=== PATIENT | male | born 1965 | race Caucasian/White ===

== ENCOUNTER 2016-11-14 16:15 | Inpatient (IN) | payer BC ==
[~2016-11-14] VITALS: Ht 180.3 cm; Wt 86.8 kg
[2016-11-14] MEDS ORDERED: MoRPHine SULFATE 10 MG/ML CARP/VIAL IV STA (16:49)
[2016-11-14] MEDS ORDERED: HYDR200T5 PO (16:49)
[2016-11-14] MEDS ORDERED: SODIUM CHLORIDE 0.9% 1000ML 2,000 ML IV STA (16:49)
[2016-11-14] MEDS ORDERED: ONDANSETRON INJ 2 MG/ML 2 ML VIAL IV STA (16:49)
[2016-11-14] MEDS ORDERED: OPTIRAY 320 IV PRN (17:00)
[2016-11-14 17:32] LABS: ISTAT CREATININE 0.9 mg/dl (0.6-1.3); ISTAT HEMOGLOBIN 15.6 g/dl (14.0-18.0); ISTAT IONIZED CALCIUM 1.15 mmol/l (1.12-1.32)
[2016-11-14 17:56] LABS: BASO % 0.2 %; BASO ABS # 0.02 K/uL (0-0.2); COMPLETE YES; EOS % 0.2 %; HEMATOCRIT 43.9 % (42-52); IG% 0.2 %; LYMPH % 6.2 %; LYMPH ABS # 0.81 K/uL (1.2-3.4); MEAN CELL VOLUME 94.4 fL (80-100); MEAN CORPUSCULAR HEMOGLOBIN 32.7 pg (25-34); MEAN CORPUSCULAR HGB CONC 34.6 g/dl (32-36); MEAN PLATELET VOLUME 10.2 fL (7.4-10.4); MONO % 4.5 %; NEUT % 88.7 %; PLATELET COUNT 187 K/uL (130-400); RED BLOOD COUNT 4.65 M/uL (4.7-6.1); WHITE BLOOD COUNT 12.99 K/uL (4.8-10.8)
--- NOTE | 2016-11-14 18:01 | DIAGNOSTIC IMAGING REPORT ---
CT ABD/PELVIS IV CONTRAST ONLY CLINICAL HISTORY: severe epigastric abd pain COMPARISON STUDY: None. TECHNIQUE: Following the IV administration of 87 mL of Optiray-320, CT scan of the abdomen and pelvis was performed from the lung bases to the proximal femurs. Images are reviewed in the axial, sagittal, and coronal planes. IV contrast was administered without complication. CT DOSE: 324.75 mGy.cm FINDINGS: Lower chest: There is bibasal atelectasis. Liver: There is too small to characterize 8 mm hypodensity within the right hepatic lobe. Gallbladder: Unremarkable. Spleen: Normal in size and attenuation. Pancreas: Unremarkable. Adrenal glands: Unremarkable. Kidneys: There are small nonobstructing right renal calculi. No renal masses are visualized. There is no hydronephrosis. Bowel: There are dilated fluid-filled proximal small bowel loops with mild mesenteric edema. The distal small bowel is of normal caliber. The findings are indicative of a small bowel obstruction. There is colonic diverticulosis. There are no acute peridiverticular inflammatory changes. Peritoneum: There is no intraperitoneal free air or abdominal ascites. Vasculature: The abdominal aorta is normal in course and caliber. Adenopathy: None. Pelvic viscera: The bladder, and pelvic viscera are unremarkable. Skeletal structures: No destructive osseous lesions are seen. IMPRESSION: 1. Proximal to mid small bowel obstruction with mesenteric edema. No mass is visualized. A closed loop obstruction cannot be excluded. There is no pneumatosis, and no evidence for portal venous gas. Surgical consultation is recommended. 2. Right-sided nephrolithiasis 3. No evidence of free air 4. Diverticulosis. No evidence of acute peridiverticular inflammatory change. Electronically signed by: Cory Ortega M.D. 11/14/2016 6:00 PM Dictated Date/Time: 11/14/2016 5:53 PM
[2016-11-14 18:04] LABS: BUN/CREATININE RATIO 21.4 (10-20); CALCIUM 8.9 mg/dl (8.5-10.1); CREATININE 1.1 mg/dl (0.60-1.40); POTASSIUM 3.7 mmol/L (3.5-5.1)
[2016-11-14] MEDS ORDERED: D5W AND 1/2NSS + 20MEQ KCL 1,000 ML IV SCH (19:48)
--- NOTE | 2016-11-14 19:48 | History and Physical ---
History & Physical Date & Time of Service: Nov 14, 2016 at 19:34 Chief Complaint: Severe Abd Pain,Vomiting Primary Care Physician: Miguel Resendiz D.O. History of Present Illness Source: patient, family pt is a 51 years old male who presents to ER for 3 hours acute abdominal pain, with nausea and vomiting, the pain is located at above umbilical area, 10/10, pt denies fever, no diarrhea, this is first time pt has acute abdominal pain. no past surgery history on abdomen. Family History No pertinent family history Social History Smoking Status: Never Smoker Smokeless Tobacco Use: No Alcohol Use: occasionally Drug Use: none Marital Status: Allergies Coded Allergies: No Known Allergies (Unverified , 11/14/16) Home Medications Scheduled Hydroxychloroquine Sulfate (Plaquenil), 400 MG PO QPM Review of Systems Constitutional: No chills, No fatigue, No fever, No problem reported, No sweats , No weakness, No weight loss Eyes: No diplopia, No discharge, No eye pain, No problem reported, No redness, No worsening of vision ENT: No dental problems, No hearing loss, No nasal symptoms, No problem reported, No sore throat, No tinnitus, No trouble swallowing, No unusual epistaxis Respiratory: No cough, No dyspnea at rest, No dyspnea on exertion, No hemoptysis, No problem reported, No shortness of breath, No sputum, No wheezing Cardiovascular: No PND, No chest pain, No claudication, No edema, No orthopnea , No palpitations, No problem reported Abdomen: + nausea, + pain, + vomiting Musculoskeletal: No calf pain, No joint pain, No muscle pain, No problem reported, No swelling Genitourinary - Male: No dysuria, No hematuria, No impotence, No lesions, No penile discharge, No problem reported, No urinary frequency, No urinary hesitancy, No urinary incontinence, No urinary retention, No urinary urgency Neurologic: No balance problems, No memory loss, No numbness/tingling, No paralysis, No problem reported, No vertigo, No weakness Endocrine: No excessive thirst, No excessive urination, No fatigue, No problem reported Hematologic / Lymphatic: No abnormal bleeding/bruising, No clotting problems, No night sweats, No problem reported, No swollen lymph nodes Integumentary: No bleeding, No color change, No itch, No new/changing skin lesions, No problem reported, No rash Physical Exam Vital Signs Date Time Temp Pulse Resp B/P Pulse Ox O2 Delivery O2 Flow Rate FiO2 11/14/16 18:44 76 16 110/76 100 Room Air 11/14/16 16:24 36.3 62 18 126/78 98 Room Air General Appearance: WD/WN, no apparent distress, + mild distress Head: normocephalic, atraumatic Eyes: normal inspection, PERRL ENT: normal ENT inspection Neck: supple, no adenopathy, no JVD Respiratory/Chest: chest non-tender, lungs clear, normal breath sounds Cardiovascular: regular rate, rhythm, no edema, no gallop, no JVD Abdomen/GI: no organomegaly, + tenderness, + guarding Back: normal inspection Extremities/Musculoskelatal: normal inspection, no calf tenderness, normal capillary refill 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, no motor/sensory deficits Skin: normal color, warm/dry Diagnostics Laboratory Results Results Past 24 Hours Test 11/14/16 17:05 11/14/16 17:14 11/14/16 17:20 Range/Units White Blood Count 12.99 4.8-10.8 K/uL Red Blood Count 4.65 4.7-6.1 M/uL Hemoglobin 15.2 14.0-18.0 g/dL Hematocrit 43.9 42-52 % Mean Corpuscular Volume 94.4 80-100 fL Mean Corpuscular Hemoglobin 32.7 25-34 pg Mean Corpuscular Hemoglobin Concent 34.6 32-36 g/dl Platelet Count 187 130-400 K/uL Mean Platelet Volume 10.2 7.4-10.4 fL Neutrophils (%) (Auto) 88.7 % Lymphocytes (%) (Auto) 6.2 % Monocytes (%) (Auto) 4.5 % Eosinophils (%) (Auto) 0.2 % Basophils (%) (Auto) 0.2 % Neutrophils # (Auto) 11.52 1.4-6.5 K/uL Lymphocytes # (Auto) 0.81 1.2-3.4 K/uL Monocytes # (Auto) 0.58 0.11-0.59 K/uL Eosinophils # (Auto) 0.03 0-0.5 K/uL Basophils # (Auto) 0.02 0-0.2 K/uL RDW Standard Deviation 44.3 36.4-46.3 fL RDW Coefficient of Variation 12.8 11.5-14.5 % Immature Granulocyte % (Auto) 0.2 % Immature Granulocyte # (Auto) 0.03 0.00-0.02 K/uL Sodium Level 141 136-145 mmol/L Potassium Level 3.7 3.5-5.1 mmol/L Chloride Level 103 98-107 mmol/L Carbon Dioxide Level 28 21-32 mmol/L Anion Gap 10.0 17.0 16-25 mmol/L Blood Urea Nitrogen 24 7-18 mg/dl Creatinine 1.10 0.60-1.40 mg/dl Est Creatinine Clear Calc Drug Dose 83.6 ml/min Estimated GFR () 89.0 Estimated GFR (Non- 76.8 BUN/Creatinine Ratio 21.4 10-20 Random Glucose 150 70-99 mg/dl Calcium Level 8.9 8.5-10.1 mg/dl Total Bilirubin 0.3 0.2-1 mg/dl Direct Bilirubin 0.1 0-0.2 mg/dl Aspartate Amino Transf (AST/SGOT) 18 15-37 U/L Alanine Aminotransferase (ALT/SGPT) 19 12-78 U/L Alkaline Phosphatase 52 45-117 U/L Total Protein 7.6 6.4-8.2 gm/dl Albumin 4.4 3.4-5.0 gm/dl Lipase 151 73-393 U/L Bedside Hemoglobin 15.6 14.0-18.0 g/dl Bedside Hematocrit 46 42-52 % Bedside Sodium 141 135-144 mEq/L Bedside Potassium 3.5 3.3-5.0 mEq/L Bedside Chloride 101 101-112 mEq/L Bedside Total CO2 27 24-31 mEq/l Bedside Blood Urea Nitrogen 25 7-18 mg/dl Bedside Creatinine 0.9 0.6-1.3 mg/dl Bedside Glucose (other) 151 70-99 mg/dl Bedside Ionized Calcium (Lorri) 1.15 1.12-1.32 mmol/l Bedside Lactic Acid Venous 1.46 0.90-1.70 mmol/L Diagnostic Radiology CT scan-IMPRESSION: 1. Proximal to mid small bowel obstruction with mesenteric edema. No mass is visualized. A closed loop obstruction cannot be excluded. There is no pneumatosis, and no evidence for portal venous gas. Surgical consultation is recommended. 2. Right-sided nephrolithiasis 3. No evidence of free air 4. Diverticulosis. No evidence of acute peridiverticular inflammatory change. Impression Assessment and Plan IMP SBO, possible loop SBO or internal hernia Plan: base on pt has no surgical history, possible loop SBO internal hernia, I recommend to do explortory laparotomy, possible, bowel resection and stoma, D/w benefits, risks and alternatives of the procedure, the risks- infection, bleeding, bowel resection, AL, sepsis, DVT, , pt and his understood, they agree with [facility] plan , i answered all questions, ASA Classification: ASA Class II Level of Care Med/Surg VTE Prophylaxis Risk Level: Low Given or contraindicated: SCD's Note Total Time: Critical Care 30 - 74 minutes
[2016-11-14] MEDS ORDERED: BUPIVACAINE/EPINEPHRINE 0.5% MPF 1:200,000 30 ML VIAL ONE (19:52)
[2016-11-14] MEDS ORDERED: ROPIVACAINE 0.5% 5 MG/ML 30 ML VIAL ONE (19:53)
[2016-11-14] MEDS ORDERED: BUPIVACAINE 0.5 % 5 MG/1 ML PF 10ML VIAL ONE (19:53)
[2016-11-14] MEDS ORDERED: DEXAMETHASONE SOD INJ 4 MG/ML VIAL ONE (19:53)
[2016-11-14] MEDS ORDERED: FENTANYL CITRATE INJ 50 MCG/1 ML 2 ML VIAL ONE (19:53)
[2016-11-14] MEDS ORDERED: PROPOFOL IV EMULSION 10 MG/ML 20 ML VIAL IV ONE (19:56)
[2016-11-14] MEDS ORDERED: LIDOCAINE HCL 2% 2 ML VIAL (20MG/ML) ONE (19:56)
[2016-11-14] MEDS ORDERED: SUCCINYLCHOLINE CHLORIDE 20 MG/ML 10 ML VIAL IV ONE (19:56)
[2016-11-14] MEDS ORDERED: HYDROmorphone INJ 1 MG/ML SYR IV PRN ×3 (20:00→21:30)
[2016-11-14 20:09] LABS: URINE APPEARANCE CLEAR (CLEAR); URINE BILIRUBIN NEG (NEG); URINE COLOR YELLOW; URINE NITRITE NEG (NEG); URINE SPECIFIC GRAVITY > 1.045 (1.000-1.030); UROBILINOGEN NEG (NEG); ZZUR CULT IF INDIC CLEAN CATCH NO
--- NOTE | 2016-11-14 20:14 | EMERGENCY ROOM VISIT NOTE ---
History Report prepared by Yessenia: Diana Kenny Under the Supervision of: Dr. Nicolás Pittman D.O. First contact with patient: 16:37 Chief Complaint: ABDOMINAL PAIN Stated Complaint: SEVERE ABD PAIN,VOMITING History of Present Illness The patient is a 51 year old male who presents to the Emergency Room with complaints of persistent epigastric abdominal pain that began at 1400 today. He currently rates her discomfort as an 8/10 in severity. The patient states that today he ate a salad for lunch and denies it being brown or old. He denies ever having pain like this in the past. The patient denies any previous abdominal surgeries, noting that he still has his appendix and gallbladder. He additionally associates vomiting and nausea with his symptoms today. The patient denies any fever. The patient denies any modifying factors. He denies being able to keep any food or fluids down. The patient denies any sick contacts. He denies any active medical problems. Source of History: patient Onset: 1400 today Position: abdomen (epigastric) Symptom Intensity: 8/10 Timing: other (persistent) Associated Symptoms: + nausea, + vomiting, No fevers Review of Systems See HPI for pertinent positives & negatives. A total of 10 systems reviewed and were otherwise negative. Past Medical & Surgical No pertinent history Family History No pertinent family history Social History Smoking Status: Never Smoker Smokeless Tobacco Use: No Alcohol Use: occasionally Marital Status: Housing Status: lives with significant other Occupation Status: employed Current/Historical Medications Scheduled Hydroxychloroquine Sulfate (Plaquenil), 400 MG PO QPM Allergies Coded Allergies: No Known Allergies (Unverified , 11/14/16) Physical Exam Vital Signs Date Time Temp Pulse Resp B/P Pulse Ox O2 Delivery O2 Flow Rate FiO2 11/14/16 19:45 75 16 112/58 99 Room Air 11/14/16 18:44 76 16 110/76 100 Room Air 11/14/16 16:24 36.3 62 18 126/78 98 Room Air Physical Exam GENERAL: Sitting up in bed, disheveled, holding vomit bag EYE EXAM: normal conjunctiva. OROPHARYNX: no exudate, no erythema, lips, buccal mucosa, and tongue normal and mucous membranes are moist NECK: supple, no nuchal rigidity, no adenopathy, non-tender LUNGS: Clear to auscultation. Normal chest wall mechanics HEART: no murmurs, S1 normal and S2 normal ABDOMEN: Tenderness to palpation in the epigastric region. abdomen sof, normo- active bowel sounds, no masses, no rebound or guarding. BACK: Back is symmetrical on inspection and there is no deformity, no midline tenderness, no CVA tenderness. SKIN: no rashes and no bruising UPPER EXTREMITIES: upper extremities are grossly normal. LOWER EXTREMITIES: No pitting edema. NEURO EXAM: Normal sensorium, cranial nerves II-XII grossly intact, normal speech, no gross weakness of arms, no gross weakness of legs. Medical Decision & Procedures ER Provider Diagnostic Interpretation: Xray results per the radiologist and my interpretation. Other results have been interpreted by the radiologist and reviewed by me. CT ABD/PELVIS IV CONTRAST ONLY CLINICAL HISTORY: severe epigastric abd pain COMPARISON STUDY: None. TECHNIQUE: Following the IV administration of 87 mL of Optiray-320, CT scan of the abdomen and pelvis was performed from the lung bases to the proximal femurs. Images are reviewed in the axial, sagittal, and coronal planes. IV contrast was administered without complication. CT DOSE: 324.75 mGy.cm FINDINGS: Lower chest: There is bibasal atelectasis. Liver: There is too small to characterize 8 mm hypodensity within the right hepatic lobe. Gallbladder: Unremarkable. Spleen: Normal in size and attenuation. Pancreas: Unremarkable. Adrenal glands: Unremarkable. Kidneys: There are small nonobstructing right renal calculi. No renal masses are visualized. There is no hydronephrosis. Bowel: There are dilated fluid-filled proximal small bowel loops with mild mesenteric edema. The distal small bowel is of normal caliber. The findings are indicative of a small bowel obstruction. There is colonic diverticulosis. There are no acute peridiverticular inflammatory changes. Peritoneum: There is no intraperitoneal free air or abdominal ascites. Vasculature: The abdominal aorta is normal in course and caliber. Adenopathy: None. Pelvic viscera: The bladder, and pelvic viscera are unremarkable. Skeletal structures: No destructive osseous lesions are seen. IMPRESSION: 1. Proximal to mid small bowel obstruction with mesenteric edema. No mass is visualized. A closed loop obstruction cannot be excluded. There is no pneumatosis, and no evidence for portal venous gas. Surgical consultation is recommended. 2. Right-sided nephrolithiasis 3. No evidence of free air 4. Diverticulosis. No evidence of acute peridiverticular inflammatory change. Electronically signed by: Cory Ortega M.D. 11/14/2016 6:00 PM Dictated Date/Time: 11/14/2016 5:53 PM Laboratory Results 11/14/16 17:05 Red Blood Count 4.65, Mean Corpuscular Volume 94.4, Mean Corpuscular Hemoglobin 32.7, Mean Corpuscular Hemoglobin Concent 34.6, Mean Platelet Volume 10.2, Neutrophils (%) (Auto) 88.7, Lymphocytes (%) (Auto) 6.2, Monocytes (%) (Auto) 4.5, Eosinophils (%) (Auto) 0.2, Basophils (%) (Auto) 0.2, Neutrophils # (Auto) 11.52, Lymphocytes # (Auto) 0.81, Monocytes # (Auto) 0.58, Eosinophils # (Auto) 0.03, Basophils # (Auto) 0.02 11/14/16 17:05 Test 11/14/16 17:05 11/14/16 17:14 11/14/16 17:20 11/14/16 19:45 White Blood Count 12.99 K/uL (4.8-10.8) Red Blood Count 4.65 M/uL (4.7-6.1) Hemoglobin 15.2 g/dL (14.0-18.0) Hematocrit 43.9 % (42-52) Mean Corpuscular Volume 94.4 fL (80-100) Mean Corpuscular Hemoglobin 32.7 pg (25-34) Mean Corpuscular Hemoglobin Concent 34.6 g/dl (32-36) Platelet Count 187 K/uL (130-400) Mean Platelet Volume 10.2 fL (7.4-10.4) Neutrophils (%) (Auto) 88.7 % Lymphocytes (%) (Auto) 6.2 % Monocytes (%) (Auto) 4.5 % Eosinophils (%) (Auto) 0.2 % Basophils (%) (Auto) 0.2 % Neutrophils # (Auto) 11.52 K/uL (1.4-6.5) Lymphocytes # (Auto) 0.81 K/uL (1.2-3.4) Monocytes # (Auto) 0.58 K/uL (0.11-0.59) Eosinophils # (Auto) 0.03 K/uL (0-0.5) Basophils # (Auto) 0.02 K/uL (0-0.2) RDW Standard Deviation 44.3 fL (36.4-46.3) RDW Coefficient of Variation 12.8 % (11.5-14.5) Immature Granulocyte % (Auto) 0.2 % Immature Granulocyte # (Auto) 0.03 K/uL (0.00-0.02) Est Creatinine Clear Calc Drug Dose 83.6 ml/min Estimated GFR () 89.0 Estimated GFR (Non- 76.8 BUN/Creatinine Ratio 21.4 (10-20) Calcium Level 8.9 mg/dl (8.5-10.1) Total Bilirubin 0.3 mg/dl (0.2-1) Direct Bilirubin 0.1 mg/dl (0-0.2) Aspartate Amino Transf (AST/SGOT) 18 U/L (15-37) Alanine Aminotransferase (ALT/SGPT) 19 U/L (12-78) Alkaline Phosphatase 52 U/L (45-117) Total Protein 7.6 gm/dl (6.4-8.2) Albumin 4.4 gm/dl (3.4-5.0) Lipase 151 U/L (73-393) Bedside Hemoglobin 15.6 g/dl (14.0-18.0) Bedside Hematocrit 46 % (42-52) Bedside Sodium 141 mEq/L (135-144) Bedside Potassium 3.5 mEq/L (3.3-5.0) Bedside Chloride 101 mEq/L (101-112) Bedside Total CO2 27 mEq/l (24-31) Anion Gap 17.0 mmol/L (16-25) Bedside Blood Urea Nitrogen 25 mg/dl (7-18) Bedside Creatinine 0.9 mg/dl (0.6-1.3) Bedside Glucose (other) 151 mg/dl (70-99) Bedside Ionized Calcium (Lorri) 1.15 mmol/l (1.12-1.32) Bedside Lactic Acid Venous 1.46 mmol/L (0.90-1.70) Laboratory results per my review. Medications Administered Medications (Trade) Dose Ordered Sig/Marianna Route Start Time Stop Time Status Last Admin Dose Admin Sodium Chloride (Nss 1000ml) 2,000 ml @ 999 mls/hr Q2H1M STAT IV 11/14/16 16:49 11/14/16 18:49 DC 11/14/16 17:20 999 MLS/HR Ondansetron HCl (Zofran Inj) 4 mg NOW STAT IV 11/14/16 16:49 11/14/16 16:51 DC 11/14/16 17:17 4 MG Morphine Sulfate (MoRPHine SULFATE INJ) 6 mg NOW STAT IV 11/14/16 16:49 11/14/16 16:51 DC 11/14/16 17:18 6 MG ED Course ED COURSE: Vital signs were reviewed and showed normal vitals The patients medical record was reviewed The above diagnostic studies were performed and reviewed. ED treatments and interventions as stated above. 1639: The patient was evaluated in room C4. A complete history and physical examination was performed. 1649: Ordered Morphine Sulfate 6 mg IV, Zofran Inj 4 mg IV, Sodium chloride 2000 ml @ 999 mls/hr IV. 1809: I reevaluated the patient and he is doing well. 181: I discussed the patients case with Dr. Jay, General Surgery. He is going to come evaluate the patient. 1856: Dr. Jay will take the patient to the OR. 1858: Upon reevaluation, the patient is hemodynamically stable.I discussed my findings with the patient and he understands and agrees with the treatment plan. Based on the patients age, coexisting illnesses, exam and lab findings the decision to treat as an inpatient was made. The patient remained stable while under my care. The patient will be evaluated for further management. Medical Decision Differential diagnoses includes but is not limited to gastritis, peptic ulcer disease, GERD, gallbladder disease, pancreatitis, small bowel obstruction, acute coronary syndrome, pericarditis, ischemic bowel, irritable bowel disease, irritable bowel syndrome, appendicitis, diverticulitis, malignancy, hernia, urinary tract infection, torsion, perforation, trauma, infectious. Patient is a 51-year-old male who presents the ER for diffuse abdominal pain which started acutely around 2 PM. No previous abdominal surgeries. Vitals are stable. On evaluation he is holding a vomit bag with stool colored vomit present. His abdominal exam has mild diffuse tenderness. Labs were obtained and show mild leukocytosis. An i-STAT showed a normal creatinine. Following the i-STAT he is taking for CT which showed small bowel obstruction. He was given a liter normal saline along with morphine. He was given IV Zofran as well. Complete resolution of his pain. Patient was updated regards to his findings. I consulted surgery and he is taken to the OR with a small bowel obstruction and inflammatory changes around the mesentery. Lactic acid was negative. Consults Time Called: 1808 Consulting Physician: Dr. Jay, General Surgery Returned Call: 1811 I discussed the patients case with Dr. Jay, General Surgery. He is going to come evaluate the patient. Impression Primary Impression: Small bowel obstruction Scribe Attestation The scribe's documentation has been prepared under my direction and personally reviewed by me in its entirety. I confirm that the note above accurately reflects all work, treatment, procedures, and medical decision making performed by me. Departure Information Dispostion Being Evaluated By Surgeon (Dr. Jay - General Surgery) Referrals Miguel Resendiz D.O. (PCP)
[2016-11-14 20:15] LABS: MANUAL MICROSCOPIC REQUIRED? NO; REVIEW REQ? NO
[2016-11-14] MEDS ORDERED: GLYCOPYRROLATE INJ 0.2 MG/ML VIAL ONE (20:54)
[2016-11-14] MEDS ORDERED: NEOSTIGMINE METHYLSULFATE 5 MG/5 ML SYR ONE (20:54)
[2016-11-14] MEDS ORDERED: BUPIVACAINE 0.5 % 5 MG/1 ML MPF 30ML VIAL INJ ONE (21:15)
[2016-11-14] MEDS ORDERED: LIDOCAINE HCL 1% 20 ML VIAL INJ ONE (21:15)
[2016-11-14] MEDS ORDERED: BACITRACIN ZINC OINT TOP ONE (21:17)
[2016-11-14] MEDS ORDERED: ONDANSETRON INJ 2 MG/ML 2 ML VIAL IV PRN ×2 (21:30→22:00)
[2016-11-14] MEDS ORDERED: CEFAZOLIN IV 2,000 MG/60 ML D5W IV STA (21:32)
--- NOTE | 2016-11-14 21:41 | [facility] Post Operative Brief Note ---
Immediate Operative Summary Operative Date Nov 14, 2016. Pre-Operative Diagnosis Small Bowel Obstruction Post-Operative Diagnosis Ischemic Mesenteric Internal Hernia Procedure(s) Performed Exploratory Laparotomy, Repair of Ischemic Mesenteric Internal Hernia Surgeon Dr. Jay Corner Cutter Surgeon(s) none Estimated Blood Loss 20 ml Findings internal hernia, ischemic mesentery Fluids (cc crystalloids) 1000ml Specimens none per surgeon Drains none Anesthesia general Complication(s) None Disposition Recovery Room / PACU
[2016-11-14] MEDS ORDERED: FENTANYL CITRATE INJ 50 MCG/1 ML 2 ML VIAL IV PRN (22:00)
[2016-11-14] MEDS ORDERED: ATROPINE SULFATE 0.1 MG/ML 5ML SYR IV PRN (22:00)
[2016-11-14] MEDS ORDERED: EpHEDrine SULFATE INJ 50 MG/ML AMP IV PRN (22:00)
--- NOTE | 2016-11-14 22:11 | Anesthesiology Progress Note ---
Anesthesia Post Op Note Date & Time Nov 14, 2016 at 22:11 Vital Signs Pain Intensity: 4 Vital Signs Past 12 Hours Date Time Temp Pulse Resp B/P Pulse Ox O2 Delivery O2 Flow Rate FiO2 11/14/16 22:00 94 20 154/85 100 Mask 10 11/14/16 21:50 102 20 151/94 100 Mask 10 11/14/16 21:40 102 20 153/96 100 Mask 10 11/14/16 21:34 36.5 99 20 144/92 100 Mask 10 11/14/16 19:45 75 16 112/58 99 Room Air 11/14/16 18:44 76 16 110/76 100 Room Air 11/14/16 16:24 36.3 62 18 126/78 98 Room Air Notes Mental Status: alert / awake / arousable, participated in evaluation Pt Amnestic to Procedure: Yes Nausea / Vomiting: adequately controlled Pain: adequately controlled Airway Patency, RR, SpO2: stable & adequate BP & HR: stable & adequate Hydration State: stable & adequate Anesthetic Complications: no major complications apparent
[2016-11-14 22:20] VITALS: BP 155/88; PULSE 91; TEMP 36.7; O2SAT 97
[2016-11-14 22:50] VITALS: BP 150/80; PULSE 83; TEMP 36.9; O2SAT 97
[2016-11-14] MEDS ORDERED: KETOROLAC TROMETHAMINE 30 MG/ML VIAL ONE (23:17)
[2016-11-14] MEDS ORDERED: CEFAZOLIN SOD 1 GM VIAL ONE (23:17)
[2016-11-14] MEDS ORDERED: ONDANSETRON INJ 2 MG/ML 2 ML VIAL ONE (23:17)
[2016-11-14 23:24] VITALS: BP 143/77; PULSE 75; TEMP 36.9; O2SAT 96
[2016-11-15] VITALS (7 sets, daily range): BP systolic 131–143; BP diastolic 71–86; PULSE 75–88; TEMP 36.6–36.9; O2SAT 94–97; Ht 180.3 cm; Wt 86.8 kg
[2016-11-15] MEDS: D5W AND 1/2NSS + 20MEQ KCL 1,000 ML IV SCH ×3 (00:30→19:15)
[2016-11-15] MEDS ORDERED: INFLUENZA VIRUS QUAD VACCINE 0.5 ML SYR IM. ONE (04:30)
[2016-11-15] MEDS ORDERED: INFLUENZA ADMINISTRATION CHARGE ONE (04:30)
[2016-11-15 05:41] LABS: COMPLETE YES; HEMATOCRIT 40.7 % (42-52); IG% 0.1 %; LYMPH % 9.4 %; LYMPH ABS # 0.82 K/uL (1.2-3.4); MEAN CELL VOLUME 93.6 fL (80-100); MEAN CORPUSCULAR HEMOGLOBIN 31.5 pg (25-34); MEAN CORPUSCULAR HGB CONC 33.7 g/dl (32-36); MEAN PLATELET VOLUME 9.9 fL (7.4-10.4); MONO % 7.3 %; NEUT % 83.2 %; PLATELET COUNT 169 K/uL (130-400); RED BLOOD COUNT 4.35 M/uL (4.7-6.1); WHITE BLOOD COUNT 8.75 K/uL (4.8-10.8)
[2016-11-15 06:12] LABS: ALB/GLOB RATIO 1.3 (0.9-2); CALCIUM 7.8 mg/dl (8.5-10.1); CREATININE 0.98 mg/dl (0.60-1.40); POTASSIUM 4.3 mmol/L (3.5-5.1)
--- NOTE | 2016-11-15 07:25 | Surgery Progress Note ---
Surgery Progress Note Date of Service Nov 15, 2016. Subjective Post OP Day: 1 + feeling well F/U S/P exp lap, repair internal hernia for ischemic mesentery POD1 pt is doing better, no significant abdominal pain, no N/V, NG 200ml, not pass gas yet, Objective Vital Signs: Date Time Temp Pulse Resp B/P Pulse Ox O2 Delivery O2 Flow Rate FiO2 11/15/16 03:50 36.8 86 16 131/74 97 Room Air 11/15/16 01:21 36.9 83 14 139/75 97 Nasal Cannula 3.0 11/15/16 00:22 36.8 75 16 133/71 97 Nasal Cannula 3.0 11/14/16 23:30 Nasal Cannula 3.0 11/14/16 23:30 Nasal Cannula 3.0 11/14/16 23:24 36.9 75 14 143/77 96 Room Air 11/14/16 22:50 36.9 83 16 150/80 97 Nasal Cannula 3.0 11/14/16 22:20 97 Nasal Cannula 3.0 11/14/16 22:20 36.7 91 16 155/88 97 Nasal Cannula 3.0 11/14/16 22:10 37.0 97 20 141/92 100 Nasal Cannula 2 11/14/16 22:00 94 20 154/85 100 Mask 10 11/14/16 21:50 102 20 151/94 100 Mask 10 11/14/16 21:40 102 20 153/96 100 Mask 10 11/14/16 21:34 36.5 99 20 144/92 100 Mask 10 11/14/16 19:45 75 16 112/58 99 Room Air 11/14/16 18:44 76 16 110/76 100 Room Air 11/14/16 16:24 36.3 62 18 126/78 98 Room Air General Appearance: WD/WN Head: normocephalic Neck: supple, no JVD Respiratory/Chest: chest non-tender, lungs clear Cardiovascular: regular rate, rhythm, no edema, no gallop, no JVD Abdomen: normal bowel sounds, non tender, non distended, soft Incision(s): clean, dry, intact Extremities: normal range of motion, non-tender, normal inspection Laboratory Results: Results Past 24 Hours Test 11/14/16 17:05 11/14/16 17:14 11/14/16 17:20 11/14/16 19:45 Range/Units White Blood Count 12.99 4.8-10.8 K/uL Red Blood Count 4.65 4.7-6.1 M/uL Hemoglobin 15.2 14.0-18.0 g/dL Hematocrit 43.9 42-52 % Mean Corpuscular Volume 94.4 80-100 fL Mean Corpuscular Hemoglobin 32.7 25-34 pg Mean Corpuscular Hemoglobin Concent 34.6 32-36 g/dl Platelet Count 187 130-400 K/uL Mean Platelet Volume 10.2 7.4-10.4 fL Neutrophils (%) (Auto) 88.7 % Lymphocytes (%) (Auto) 6.2 % Monocytes (%) (Auto) 4.5 % Eosinophils (%) (Auto) 0.2 % Basophils (%) (Auto) 0.2 % Neutrophils # (Auto) 11.52 1.4-6.5 K/uL Lymphocytes # (Auto) 0.81 1.2-3.4 K/uL Monocytes # (Auto) 0.58 0.11-0.59 K/uL Eosinophils # (Auto) 0.03 0-0.5 K/uL Basophils # (Auto) 0.02 0-0.2 K/uL RDW Standard Deviation 44.3 36.4-46.3 fL RDW Coefficient of Variation 12.8 11.5-14.5 % Immature Granulocyte % (Auto) 0.2 % Immature Granulocyte # (Auto) 0.03 0.00-0.02 K/uL Sodium Level 141 136-145 mmol/L Potassium Level 3.7 3.5-5.1 mmol/L Chloride Level 103 98-107 mmol/L Carbon Dioxide Level 28 21-32 mmol/L Anion Gap 10.0 17.0 16-25 mmol/L Blood Urea Nitrogen 24 7-18 mg/dl Creatinine 1.10 0.60-1.40 mg/dl Est Creatinine Clear Calc Drug Dose 83.6 ml/min Estimated GFR () 89.0 Estimated GFR (Non- 76.8 BUN/Creatinine Ratio 21.4 10-20 Random Glucose 150 70-99 mg/dl Calcium Level 8.9 8.5-10.1 mg/dl Total Bilirubin 0.3 0.2-1 mg/dl Direct Bilirubin 0.1 0-0.2 mg/dl Aspartate Amino Transf (AST/SGOT) 18 15-37 U/L Alanine Aminotransferase (ALT/SGPT) 19 12-78 U/L Alkaline Phosphatase 52 45-117 U/L Total Protein 7.6 6.4-8.2 gm/dl Albumin 4.4 3.4-5.0 gm/dl Lipase 151 73-393 U/L Hepatitis C Antibody Screen NEG NEG Bedside Hemoglobin 15.6 14.0-18.0 g/dl Bedside Hematocrit 46 42-52 % Bedside Sodium 141 135-144 mEq/L Bedside Potassium 3.5 3.3-5.0 mEq/L Bedside Chloride 101 101-112 mEq/L Bedside Total CO2 27 24-31 mEq/l Bedside Blood Urea Nitrogen 25 7-18 mg/dl Bedside Creatinine 0.9 0.6-1.3 mg/dl Bedside Glucose (other) 151 70-99 mg/dl Bedside Ionized Calcium (Lorri) 1.15 1.12-1.32 mmol/l Bedside Lactic Acid Venous 1.46 0.90-1.70 mmol/L Urine Color YELLOW Urine Appearance CLEAR CLEAR Urine pH 6.0 4.5-7.5 Urine Specific [place] > 1.045 1.000-1.030 Urine Protein NEG NEG Urine Glucose (UA) NEG NEG Urine Ketones 1+ NEG Urine Occult Blood NEG NEG Urine Nitrite NEG NEG Urine Bilirubin NEG NEG Urine Urobilinogen NEG NEG Urine Leukocyte Esterase NEG NEG Urine WBC (Auto) 0 0-5 /hpf Urine RBC (Auto) 0-4 0-4 /hpf Urine Hyaline Casts (Auto) 1-5 0-5 /lpf Urine Epithelial Cells (Auto) 10-20 0-5 /lpf Urine Bacteria (Auto) NEG NEG Test 11/15/16 05:25 Range/Units White Blood Count 8.75 4.8-10.8 K/uL Red Blood Count 4.35 4.7-6.1 M/uL Hemoglobin 13.7 14.0-18.0 g/dL Hematocrit 40.7 42-52 % Mean Corpuscular Volume 93.6 80-100 fL Mean Corpuscular Hemoglobin 31.5 25-34 pg Mean Corpuscular Hemoglobin Concent 33.7 32-36 g/dl Platelet Count 169 130-400 K/uL Mean Platelet Volume 9.9 7.4-10.4 fL Neutrophils (%) (Auto) 83.2 % Lymphocytes (%) (Auto) 9.4 % Monocytes (%) (Auto) 7.3 % Eosinophils (%) (Auto) 0.0 % Basophils (%) (Auto) 0.0 % Neutrophils # (Auto) 7.28 1.4-6.5 K/uL Lymphocytes # (Auto) 0.82 1.2-3.4 K/uL Monocytes # (Auto) 0.64 0.11-0.59 K/uL Eosinophils # (Auto) 0.00 0-0.5 K/uL Basophils # (Auto) 0.00 0-0.2 K/uL RDW Standard Deviation 44.0 36.4-46.3 fL RDW Coefficient of Variation 12.9 11.5-14.5 % Immature Granulocyte % (Auto) 0.1 % Immature Granulocyte # (Auto) 0.01 0.00-0.02 K/uL Sodium Level 142 136-145 mmol/L Potassium Level 4.3 3.5-5.1 mmol/L Chloride Level 106 98-107 mmol/L Carbon Dioxide Level 26 21-32 mmol/L Anion Gap 10.0 3-11 mmol/L Blood Urea Nitrogen 17 7-18 mg/dl Creatinine 0.98 0.60-1.40 mg/dl Est Creatinine Clear Calc Drug Dose 93.9 ml/min Estimated GFR () 102.3 Estimated GFR (Non- 88.3 BUN/Creatinine Ratio 17.0 10-20 Random Glucose 134 70-99 mg/dl Calcium Level 7.8 8.5-10.1 mg/dl Total Bilirubin 0.5 0.2-1 mg/dl Aspartate Amino Transf (AST/SGOT) 12 15-37 U/L Alanine Aminotransferase (ALT/SGPT) 14 12-78 U/L Alkaline Phosphatase 45 45-117 U/L Total Protein 6.2 6.4-8.2 gm/dl Albumin 3.5 3.4-5.0 gm/dl Globulin 2.7 2.5-4.0 gm/dl Albumin/Globulin Ratio 1.3 0.9-2 Assessment & Plan IMP S/P exp lap, repair internal hernia, pt is doing fine, OOB I update information about OR finding and the procedure done to pt, pt understood, I answered all questions, will F/U
--- NOTE | 2016-11-15 08:28 | OPERATIVE REPORT ---
DATE OF OPERATION: 11/14/2016 PREOPERATIVE DIAGNOSIS: Acute abdominal pain, small-bowel obstruction, possible internal hernia loop, small-bowel obstruction, ischemia mesentery. POSTOPERATIVE DIAGNOSIS: Small-bowel obstruction, internal hernia, ischemia mesentery. PROCEDURE: Exploratory laparotomy to correct internal hernia. SURGEON: Bibiana Jay MD ANESTHESIA: General. ESTIMATED BLOOD LOSS: About 20 mL. IV FLUIDS: 1000 mL. FINDINGS: Internal hernia, small-bowel obstruction, ischemia mesentery, ascites about 200 mL. COMPLICATIONS: None. 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 INDICATIONS FOR THE PROCEDURE: This is a 51-year-old gentleman who presented to the ED with a epigastric area of acute abdominal pain suddenly, located above umbilical area with nausea and vomiting. The patient had a CT scan showing his small-bowel obstruction, possible internal hernia loop obstruction. I did history and physical exam on the patient and my impression is small-bowel obstruction, possible internal hernia, loop obstruction, possible ischemic mesentery. I recommended to do exploratory laparotomy, possible bowel resection and possible stoma. I did talk to the patient and patient's about the benefits, risks and alternate procedure. I indicated the risks may include but not limited such as bleeding, infection, sepsis, DVT, myocardial infarction, stroke and even , incisional hernia, bowel resection. They understand and they signed informed consent and agreed to proceed with the procedure. I answered all questions. DETAILS OF PROCEDURE: We brought the patient to the OR, put the patient in the supine position. The patient received SCD on bilateral legs to prevent DVT. Also, the patient received Ling catheter insertion to the bladder. The patient received general anesthesia without difficulty. The abdomen was properly prepped and draped in routine sterile fashion. After a timeout, I made a small midline incision just above umbilicus about 10 cm, opened fascia, opened peritoneum under direct vision. Then we found that there was some bloody ascites in the abdomen about 200 mL. Then we found the patient had internal hernia, partial mesentery small bowel stuck to the internal hernia and found the patient had patch of blood from mesentery. Once we released the small bowel hernia, the obstruction was gone and the bowel turned to pink, so at this moment, I exposed the whole small bowel from Treitz ligament to the distal cecum and found the patient had partial small-bowel obstruction caused by internal hernia stuck to the mesentery. At this moment, we released all the small bowel and found no tight bowel. All bowel turned pink. Again there was some patch of bleeding from the mesentery. I closed the hernia by using 2-0 Vicryl [id number] x2 and the hernia located the mesentery, on the back. Once we closed the hernia and rechecked, normal hernia. Then we returned all the small bowel back to the abdominal cavity. All bowel was pink, no ischemia sign. We rechecked the abdomen and no injury to the bowel. I then closed the fascial layer by using PDS continuous running and closed subcutaneous layer by using 2-0 Vicryl, closed skin by using staple. Then we put the dressing on. The patient tolerated the procedure well. After the procedure, the patient was transferred to recovery room in stable condition. All the instrument, needle and sponge count correct x2 at the end of case. Also during the procedure, we took picture for the ischemia mesentery patch of bleeding. After the procedure, I did talk to the patient's family member, the patient's about OR finding and the procedure we did. She understands. I attest to the content of the Intraoperative Record and any orders documented therein. Any exceptions are noted below. HAFSA
[2016-11-15] MEDS: PANTOprazole INJ 40 MG in SYRINGE 0 ML IV SCH (10:55)
[2016-11-15] MEDS ORDERED: NURSING VERBAL MED ORDER ONE (19:30)
[2016-11-15] MEDS ORDERED: ACETAMINOPHEN IV 1000MG/100ML IV PRN (19:45)
[2016-11-15] MEDS: CHLORASEPTIC 1.4% SOLN 180 ML BTL MT PRN (19:50)
[2016-11-16 03:45] VITALS: BP 137/73; PULSE 88; TEMP 36.8; O2SAT 96
[2016-11-16] MEDS: D5W AND 1/2NSS + 20MEQ KCL 1,000 ML IV SCH (05:08)
[2016-11-16 07:50] VITALS: BP 132/78; PULSE 86; TEMP 36.8; O2SAT 95
[2016-11-16 08:35] VITALS: O2SAT 95
--- NOTE | 2016-11-16 10:24 | Surgery Progress Note ---
Surgery Progress Note Date of Service Nov 16, 2016. Subjective Post OP Day: 2 + ambulating, + feeling well, + flatus, + pain controlled, No bowel movement, No chest pain, No nausea, No vomiting F/U S/P exp lap, repair internal hernia for ischemic mesentery Objective Vital Signs: Date Time Temp Pulse Resp B/P Pulse Ox O2 Delivery O2 Flow Rate FiO2 11/16/16 08:35 95 Room Air 11/16/16 07:50 36.8 86 20 132/78 95 Room Air 11/16/16 07:30 Room Air 11/16/16 03:45 36.8 88 16 137/73 96 Room Air 11/15/16 23:20 Room Air 11/15/16 23:12 36.7 78 18 143/79 94 Room Air 11/15/16 15:15 96 Room Air 11/15/16 15:14 36.9 88 18 132/86 96 Room Air Physical Exam: nasogastric drainage (bilious) General Appearance: WD/WN, no apparent distress Head: normocephalic, atraumatic Respiratory/Chest: lungs clear, normal breath sounds, no respiratory distress, no accessory muscle use Cardiovascular: regular rate, rhythm Abdomen: normal bowel sounds, non tender, non distended, soft Incision(s): clean, dry, findings (The abdominal dressing is dry and clean) Extremities: normal range of motion Assessment & Plan full liquids POD # 2 s/p exploratory laparotomy with repair of internal hernia - vs stable - NGT with 60 ml output, bilious - passing flatus - ambulating and urinating without difficulty Plan: Stop NGT Start full liquids continue pain medication and Zofran prn May discharge later today if tolerating full liquids or discharge tomorrow Dr. Jay has seen and examined patient, agrees with above stated findings and treatment plan.
[2016-11-16] MEDS: PANTOprazole INJ 40 MG in SYRINGE 0 ML IV SCH (10:28)
[2016-11-16] MEDS: CHLORASEPTIC 1.4% SOLN 180 ML BTL MT PRN (10:29)
[2016-11-16] MEDS ORDERED: OXYC-57 PO (14:05)
[2016-11-16] MEDS ORDERED: OXYCODONE/ACETAMINOPHEN 5-325 TAB PO PRN (14:15)
--- NOTE | 2016-11-16 14:23 | Discharge Instructions ---
Discharge Instructions Admission Reason for Admission: SBO Discharge Discharge Diagnosis / Problem: S/p Exploratory Laparotomy and repair of internal hernia Discharge Goals Goal(s): Decrease discomfort, Improve function Activity Recommendations Activity Limitations: as noted below Lifting Limitations: no more than 10 pounds Shower/Bathe: tomorrow (May remove dressings and clean incision gently with soap and water.) Driving or Machine Use: you may drive when your pain is controlled. NO DRIVING WHILE TAKING NARCOTIC PAIN MEDICATION No heavy lifting over 10-15 pounds for 6 weeks Walking is encouraged No strenuous activity until cleared by surgeon . Instructions / Follow-Up Instructions / Follow-Up Follow-up with Dr. Jay in 1 week Please call office at [phone] to make an appointment Current Hospital Diet Patient's current hospital diet: Full Liquid Diet Discharge Diet Recommended Diet: Regular Diet (advance as tolerated, take it slow) Procedures Procedures Performed: Exploratory Laparotomy, Repair of Ischemic Mesenteric Internal Hernia Pending Studies Studies pending at discharge: no Work Instructions Return To Work: after follow-up (if you want to go to work sooner, please call office) Lifting Limitations: no more than 10 pounds Medical Emergencies . Who to Call and When: Medical Emergencies: If at any time you feel your situation is an emergency, please call 911 immediately. . Non-Emergent Contact Non-Emergency issues call your: Primary Care Provider, Surgeon Contact Number: Surgeon: [phone] Call Non-Emergent contact if: you have a fever, temperature is above 101.5, your pain is worsening, wound has increased drainage, wound has increased redness, wound has increased pain . "Provider Documentation" section prepared by Lisbeth Lo. VTE Core Measure Inpt VTE Proph given/why not?: SCD's [place] Drug Monitoring Program Search Results: patient reviewed within database, no issues identified
[2016-11-16 14:36] VITALS: BP 132/78; PULSE 86; TEMP 36.8; O2SAT 95
--- NOTE | 2016-11-16 14:59 | Discharge Summary ---
Discharge Summary Dates Admission Date / Time: Nov 14, 2016 at 21:38 Discharge Date: Nov 16, 2016 Dispostion / Condition Discharge Disposition: Home Condition at Discharge: Good Principal Diagnosis (1) Small bowel obstruction (2) Acute mesenteric ischemia (3) Internal hernia Consultations / Procedures Consultations: NONE Procedures: Exploratory Laparotomy, Repair of internal hernia Medication Reconciliation New Medications: Oxycodone/Acetaminophen 5MG/325MG (Percocet 5MG/325MG) Tab 1 TABLET PO Q4H PRN for Pain, #30 TAB Continued Medications: Hydroxychloroquine Sulfate (Plaquenil) 200 Mg Tab 400 MG PO QPM, TAB Admission HPI Per the Admitting provider: Shahriar presented to the emergency department with complaint of 3 hours of acute abdominal pain, with nausea and vomiting. The pain was located above the umbilical area. Pain rated a 10/10 and patient felt he was going to pass out in the ER department. He never had similar abdominal pain nor had any abdominal surgeries. 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 POD # 1: - Did well, no nausea/vomiting/abdominal pain/flatus/or bowel movement - NGT put out 200 mls - NGT continued on Low intermittent suction and diet kept at NPO except medications - pain was controlled adequately POD #2: - NGT output 50 mls - passed flatus - minimal to no pain - NGT was removed, diet advanced to full liquids in the am - afternoon patient tolerated full liquids, + flatus, + bowel movement - was discharged on POD # 2 Overall Hospital course uneventful Total Time Total Time Spent (min): 30 Total Time Includes: examination of the patient, discharge planning, medication reconciliation Discharge Instructions Discharge instructions given to patient, please see medical record for complete instructions Follow-up with Dr. Jay 1 week No heavy lifting over 10-15 pounds for 6 weeks Take Percocet as needed for pain (5/325 mg tab # 30 with 0 refills) Copies To Primary Care Provider: Miguel Resendiz D.O..
--- NOTE | 2016-11-17 09:02 | DISCHARGE SUMMARY ---
ADMITTING DIAGNOSIS: Small bowel obstruction, possible internal hernia, mesenteric ischemia. POSTOPERATIVE DIAGNOSIS: Same. OPERATION: Exploratory laparotomy, repair internal hernia. SURGEON: Dr. Bibiana Jay. DETAILS OF DISCHARGE SUMMARY: This is 51-year-old gentleman who come to the ED with 3 hour history of severe epigastric pain with nausea, vomiting and the patient had CT done diagnosed small bowel obstruction and edema mesentery. Based on patient has no surgical history we highly suspect internal hernia or loop obstruction. I took the patient to the OR. I did exploratory laparotomy and found the patient had internal hernia, ischemia mesentery, repair internal hernia on 11/15/2016. The patient tolerated the procedure well. After the procedure the patient transferred to regular floor. He was doing fine. Once we removed the NG tube the patient already passed gas and he tolerated liquid diet and the patient wanted to go home. PHYSICAL EXAMINATION: VITAL SIGNS: Temperature is 36.8, heart rate 86, respiratory rate 20, blood pressure 132/78. O2 saturation 95% on room air. GENERAL: The patient is alert, awake, oriented x3. HEAD, EYES, EARS, NOSE, AND THROAT: Within normal limitation. NEUROLOGIC EXAMINATION: Intact. NECK: No JVD. CHEST: Bilateral lung sounds clear. HEART: Normal S1, S2. No murmur. ABDOMEN: Soft, no distended, no tenderness. The incision is dry. Bowel sounds positive. EXTREMITIES: No edema. PLAN: The patient wanted to go home. I gave the patient postop care instructions. He understands. I will follow up the patient in 1 week. HAFSA
== END 2016-11-16 14:45 | disposition home or self-care (01) | DRG 353 ==
LOC: ENRESERVDT → ENRESERVTM → C.EDB 16:18 → C.MSW 21:38
PROVIDERS: ADMIT Surgery; ATTEND Surgery
PROC: 0WQF0ZZ Repair Abdominal Wall, Open Approach (ICD-10-PCS; principal; 2016-11-14 20:00)
DX: K45.8 Other specified abdominal hernia without obstruction or gangrene (principal); K55.019 Acute (reversible) ischemia of small intestine, extent unspecified; R18.8 Other ascites; M06.9 Rheumatoid arthritis, unspecified; Z23 Encounter for immunization; Z79.899 Other long term (current) drug therapy

== ENCOUNTER → 2017-07-14 | Outpatient (CLI) | payer BC ==
[~2017-07-14] MED LIST: HYDR200T5 PO
--- NOTE | 2017-07-14 15:51 | DIAGNOSTIC IMAGING REPORT ---
ABDOMINAL WALL ULTRASOUND CLINICAL HISTORY: UMBILICAL HERNIA W/O OBSTRUCTION COMPARISON STUDY: CT scan dated 11/14/2016 FINDINGS: There is a reducible fat-containing umbilical hernia, measuring 9 mm in maximal transverse diameter. IMPRESSION: Reducible fat-containing umbilical hernia. Electronically signed by: Cory Ortega M.D. 07/14/2017 3:50 PM Dictated Date/Time: 07/14/2017 3:48 PM
== END | disposition home or self-care (01) ==
LOC: C.ULTR 14:36
PROVIDERS: ATTEND Student in an Organized Health Care Education/Training Program
DX: K42.9 Umbilical hernia without obstruction or gangrene (principal)